=== PATIENT | male | born 1945 ===

== ENCOUNTER 2017-10-27 15:07 | Emergency (ER) | payer OTHER ==
--- NOTE | 2017-10-27 15:48 | EDPHY ---
H & P Stated Complaint: fall, face lac Time Seen by Provider: 10/27/17 15:31 HPI/ROS: Chief Complaint: Fall, facial lacerations HPI: 71-year-old male with a progressive motor neuron disease had a mechanical fall when he slipped on the ice this afternoon. Patient struck his face and sustained lacerations in his right cheek and between his eyebrows. He did not break his glasses. He did not have a loss of consciousness. He denies headache. He is not on any blood thinning medications. No neck pain. No chest pain. No other extremity injuries. No nausea or vomiting. No hearing or vision changes. ROS: 10 point Review of Systems is negative except as noted in the HPI. PMH: Progressive motor neuron disease Social History: No smoking, no alcohol, no recreational drug use Family History: non-contributory Physical Exam: Gen: Awake, Alert, Airway Intact HEENT: Head: Atraumatic Eyes: PERRLA, EOMI\ Nose: No epistaxis Mouth: Normal dentition, Airway patent, no jaw pain. No temporomandibular joint pain Face: Patient has a 1 cm laceration between his eyebrows into the subcutaneous. He also has a 2.5 cm laceration on his right cheek over over the zygoma. No bony tenderness. No step-offs. Neck: non-tender, no stepoff, Full ROM without pain Chest: non-tender, lungs CTA Heart: normal heart tones Abd: soft, non-tender, atraumatic Pelvis: non-tender, stable to AP and Lateral compression Back: atraumatic, no midline tenderness Ext: atramatic, full ROM Skin: no rash Neuro: CN II-XII intact, Strength 5/5 in all extremities, sensation intact in all extremities - Personal History Current Tetanus/Diphtheria Vaccine: Yes Current Tetanus Diphtheria and Acellular Pertussis (TDAP): Yes - Medical/Surgical History Hx Asthma: No Hx Chronic Respiratory Disease: No Hx Diabetes: No Hx Cardiac Disease: No Hx Renal Disease: No Hx Cirrhosis: No Hx Alcoholism: No Hx HIV/AIDS: No Hx Splenectomy or Spleen Trauma: No Other PMH: depression, MSA, - Social History Smoking Status: Never smoked Constitutional: Initial Vital Signs Temperature (C) 36.7 C 10/27/17 15:14 Heart Rate 84 10/27/17 15:14 Respiratory Rate 16 10/27/17 15:14 Blood Pressure 135/74 H 10/27/17 15:14 O2 Sat (%) 97 10/27/17 15:14 O2 Delivery Mode Room Air Allergies/Adverse Reactions: No Known Allergies Allergy (Unverified 10/27/17 15:11) Home Medications: Medication Instructions Recorded TESTOSTERONE 10/27/17 Medical Decision Making Procedures: Procedure: Laceration 1. repair. Verbal consent was obtained from the patient. The 1 cm laceration on the forehead was anesthetized in the usual fashion. The wound was irrigated, draped and explored to its base with a gloved finger. There were no deep structures involved. No tendon injury was identified. The wound was repaired with 2, 6-0 Ethilon simple interrupted sutures. The wound repair was uncomplicated. The procedure was performed by myself. Procedure: Laceration 2. repair. Verbal consent was obtained from the patient. The 2.5 cm laceration on the right cheek was anesthetized in the usual fashion. The wound was irrigated, draped and explored to its base with a gloved finger. There were no deep structures involved. No tendon injury was identified. The wound was repaired with a layered closure. The deep tissues were closed with 3 6-0 Vicryl horizontal mattress sutures. The skin was closed with 5, 6-0 Ethilon simple interrupted sutures. The wound repair was a layered closure but uncomplicated. The procedure was performed by myself. Departure - Departure Disposition: Home, Routine, Self-Care Clinical Impression: Laceration Condition: Good Instructions: Care For Your Stitches (ED), Facial Laceration (ED) Additional Instructions: Sutures need to be removed in 5 days, you may return to the emergency department or go to your primary care physician for this. Return to the emergency depart for increasing headache, confusion, nausea, vomiting, numbness, weakness, discharge from the wound, redness, fevers, chills , or any other concerns. Referrals: NICOLE URRUTIA [Other] - As per Instructions
[2017-10-27 16:59] VITALS: BP 143/93; PULSE 80; RESP 18; TEMP 97.7; O2SAT 96
== END 2017-10-27 17:07 | disposition home or self-care (01) ==
PROC: 0HQ1XZZ Repair Face Skin, External Approach (ICD-10-PCS; principal; 2017-10-27)
DX: S01.411A Laceration without foreign body of right cheek and temporomandibular area, initial encounter (principal); S01.81XA Laceration without foreign body of other part of head, initial encounter; W00.0XXA Fall on same level due to ice and snow, initial encounter; Y99.8 Other external cause status; Y93.89 Activity, other specified

== ENCOUNTER 2018-02-07 13:50 | Emergency (ER) | payer OTHER ==
[2018-02-07 13:59] VITALS: TEMP 98.2; O2SAT 98
--- NOTE | 2018-02-07 14:23 | EDPHY ---
General - History Smoking Status: Never smoked Time Seen by Provider: 02/07/18 14:04 Narrative: CHIEF COMPLAINT: Fall, head injury HISTORY OF PRESENT ILLNESS: Patient presents with complaints of fall and head injury. He reports being at the [facility] earlier today. He has a history of Multi-System Atrophy, which she says causes him to fall frequently. He began to fall, and struck his head on a hardwood floor. He did not lose consciousness. He sustained a laceration to the forehead that has stopped bleeding with pressure. He has a moderate headache but no nausea or vomiting. He has no midline tenderness of the neck. No chest, back or abdominal pain or injury. No injuries to the arms or legs. No weakness. No changes in his baseline blurred vision. No other associated complaints or modifying factors. REVIEW OF SYSTEMS: Ten systems reviewed and are negative unless otherwise noted in the HPI PCP: [facility] SPECIALISTS: Dr. Walters, Neurology PAST MEDICAL HISTORY: multi-system atrophy, depression, low testosterone PAST SURGICAL HISTORY: No recent surgical history SOCIAL HISTORY: Never smoker. Occasional alcohol use. No drug use. Lives here independently with his spouse. Previously worked in construction FAMILY HISTORY: Noncontributory EXAMINATION General Appearance: Alert, no distress Head: normocephalic. Right forehead laceration as below. No Jacobo sign. No raccoon eyes. No depression or injury to the scalp. Eyes: Pupils equal and round, no conjunctival pallor or injection. EOMS symmetric. Visual boyce intact by confrontation. No hyphema or subconjunctival hemorrhage. No eyelid injury. ENT, Mouth: Mucous membranes moist. Airway patent Neck: Normal inspection, supple, non-tender Respiratory: Lungs are clear to auscultation Cardiovascular: Regular rate and rhythm. No murmur. Gastrointestinal: Abdomen is soft and nontender Back: non-tender, no bony abnormalities Neurological: GCS 15. Cranial nerves 2-12 grossly intact. A&O, nonfocal, strength is symmetric at 5/5 in the arms and legs. Skin: Warm and dry, no rash. There is a stellate laceration on the right forehead just above the eyebrow. This measures 1.5 x 1.5 x 1.5. No exposure of the frontalis or underlying fascia. No foreign body. No pulsatile bleeding. Extremities: Nontender, no pedal edema. Symmetric range of motion all 4 extremities. Psychiatric: Mood and affect normal DIFFERENTIAL DIAGNOSES: Including but not limited to forehead laceration, laceration with complication, laceration with foreign body, closed head injury, intracranial hemorrhage, concussion, frontal bone fracture MDM: 2:20 p.m. Mechanical fall with closed head injury and complex laceration of the right forehead that will require suture repair. I have ordered CT scan of the head due to mechanism, headache and the possibility of underlying frontal sinus fracture. I do not appreciate evidence of basilar skull fracture. He is awake and alert no acute distress. He is mentating appropriately within normal neuro exam for him. His tetanus is up-to-date. He is resting comfortably in no acute distress. 2:55 pm. Notified by radiologist Dr. Oreilly. CT scan of the head reveals no acute abnormalities. 3:05 p.m. Patient re-evaluated. I have anesthetize the laceration, and we will proceed with irrigation closure. 4:25 p.m. Laceration has been closed without complication. Good hemostasis. Good approximation of the wound borders. We discussed wound care. We discussed head injury precautions. We discussed follow up with primary care physician for repeat evaluation and wound evaluation. We also discussed returning here in 5-7 days for suture removal. He is ambulatory discharged home stable condition at this time. PROCEDURE: Laceration repair Consent: Verbal Location: Right forehead Length of repair: 1.5 x 1.5 x 1.5 cm, stellate Complexity: Complex Layer involvement: Single Anesthesia: Local per 1% lidocaine with epinephrine. Irrigation: Extensive Debridement: 6 mL none Procedure description: Following good anesthesia, the wound was copiously irrigated. Wound bed was explored with a sterile glove, and there is no foreign body noted. Wound borders were approximated well with good hemostasis. Tolerated well without complication. Suture/Staple material: 6-0 Prolene, 11 simple ruptured sutures Wound care: Routine as discussed Suture/Staple removal: 7 Days SUPERVISION: Patient was independently examined, but I discussed the case with my secondary supervising physician Dr. Munoz ([facility] Medical Decision Making: I did not see this patient while he was in the emergency department. However his care was discussed with the PA while the patient was in the department. I agree with treatment plan and management (Low Munoz) - Diagnostics Imaging Results: Imaging Impressions Head CT 02/07/18 14:23 Impression: 1. No acute intracranial findings. 2. Diffuse cerebral atrophy with periventricular and subcortical low attenuation consistent with chronic microvascular ischemic gliosis. Findings discussed with Justyn Mccain PA-C on February 07, 2018 at 1454 hours. - Objective Vital Signs: Initial Vital Signs Temperature (C) 36.8 C 02/07/18 13:57 Heart Rate 82 02/07/18 13:57 Respiratory Rate 18 02/07/18 13:57 Blood Pressure 142/92 H 02/07/18 13:57 O2 Sat (%) 98 02/07/18 13:57 O2 Delivery Mode Room Air Allergies/Adverse Reactions: No Known Allergies Allergy (Verified 02/07/18 13:56) Home Medications: Medication Instructions Recorded TESTOSTERONE 10/27/17 Departure - Departure Disposition: Home, Routine, Self-Care Clinical Impression: Multiple system atrophy Laceration of forehead, complicated Qualifiers: Encounter type: initial encounter Qualified Code(s): S01.81XA - Laceration without foreign body of other part of head, initial encounter Closed head injury Qualifiers: Encounter type: initial encounter Qualified Code(s): S09.90XA - Unspecified injury of head, initial encounter Fall Qualifiers: Encounter type: initial encounter Qualified Code(s): W19.XXXA - Unspecified fall, initial encounter Condition: Good Instructions: Laceration (ED), Facial Laceration (ED) Additional Instructions: 1. Daily wound care as discussed 2. Contact your primary care physician for outpatient follow-up 3. ED precautions for worsening headache, vomiting, double vision, neck pain or stiffness, difficulty ambulating, incontinence of bowel or bladder, signs of infection of the laceration 4. You need to return here for suture removal in 7 days. You do not need an appointment for this. Referrals: [facility] ,. [Edm Groups for Call Sched] - As per Instructions Haylee Walters MD [Medical Doctor] - As per Instructions
[2018-02-07 16:59] VITALS: BP 144/74; PULSE 95; RESP 16
== END 2018-02-07 17:04 | disposition home or self-care (01) ==
LOC: EDUNIT#
PROC: 0HQ1XZZ Repair Face Skin, External Approach (ICD-10-PCS; principal; 2018-02-07)
DX: S01.81XA Laceration without foreign body of other part of head, initial encounter (principal); M62.50 Muscle wasting and atrophy, not elsewhere classified, unspecified site; W18.09XA Striking against other object with subsequent fall, initial encounter